=== PATIENT | male | born 1940 | race Caucasian/White ===

== ENCOUNTER 2018-09-07 10:25 | Inpatient (IN) | payer OTHER ==
[2018-09-07] MEDS ORDERED: ACYCLOVIR INJECTION 1,000 MG in DEXTROSE 5%-WATER - 100 ML IVPB ONE (11:11)
--- NOTE | 2018-09-07 11:17 | PDOC ---
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 Pt states that he first noticed a rash on his L shoulder last Monday when he went for his first chemo infusion. After his infusion, pt began to notice that the rash spread. He states that he noticed lesions appearing on his arms and back as well. Pt was seen by his oncologist and started on Zalacyclovir on Monday, 4 days ago. However, the rash continued to spread and started appearing on his face as well. Pt states that he went to his oncologist today and was sent immediately to the ER for evaluation. Pt denies F/C. Denies eye pain. Denies blurred vision. Denies CP/SOB. Denies BURKETT/ neck pain. Denies N/V/D. 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 No weakness. HEAD, EYES, EARS, NOSE AND THROAT: No change in vision. No ear pain or discharge. No sore throat. CARDIOVASCULAR: No chest pain, no shortness of breath, no loss of consciousness RESPIRATORY: No cough, wheezing, or hemoptysis. GASTROINTESTINAL: No nausea, vomiting, diarrhea or constipation. GENITOURINARY: No dysuria, frequency, or change in urination. MUSCULOSKELETAL: No joint or muscle swelling or pain. No neck or back pain. SKIN: + rash to face, arms, back NEUROLOGIC: No vertigo, no change in strength/sensation. ENDOCRINE: No increased thirst. No abnormal weight change. HEMATOLOGIC/LYMPHATIC: No anemia, easy bleeding, or history of blood clots. ALLERGIC/IMMUNOLOGIC: No hives or skin allergy. *Physical Exam - Vital Signs Last Vital Signs Temp Pulse Resp BP Pulse Ox 98.4 F 82 18 145/90 100 09/07/18 10:40 09/07/18 10:40 09/07/18 10:40 09/07/18 10:40 09/07/18 10:40 - Physical Exam Comments: 09/07/18 11:17 GENERAL: Awake, alert, and fully oriented, in no acute distress. HEAD: No signs of trauma EYES: PERRLA, EOMI, sclera anicteric, conjunctiva clear ENT: Auricles normal inspection, hearing grossly normal, nares patent, oropharynx clear without exudates. Moist mucosa NECK: Nontender, no stepoffs, Normal ROM, supple, no lymphadenopathy, JVD, or masses LUNGS: Breath sounds equal, clear to auscultation bilaterally. No wheezes, and no crackles HEART: Regular rate and rhythm, normal S1 and S2, no murmurs, rubs or gallops ABDOMEN: Soft, nontender, normoactive bowel sounds. No guarding, no rebound. No masses EXTREMITIES: Normal range of motion, no edema. No clubbing or cyanosis. No cords, erythema, or tenderness NEUROLOGICAL: Cranial nerves II through XII intact. 5/5 strength and sensation in all extremities, Normal speech, normal gait, normal cerebellar function SKIN: + crusted lesions to L upper back, with lesions crossing midline, + lesions to face and arms ED Treatment Course - LABORATORY CBC & Chemistry Diagram: 09/07/18 12:01 09/07/18 12:01 Medical Decision Making - Medical Decision Making 09/07/18 11:18 78 M with likely disseminated shingles. Pt with initial shingles rash appearing on L shoulder last Monday. However, upon initiation of chemotherapy that same day, rash subsequently progressed. Pt now with lesions to back, arms, and face. No evidence of herpes zoster ophthalmicus or silvano kay syndrome at this time. No meningitic signs. - Labs - IV acyclovir - Admit *DC/Admit/Observation/Transfer Diagnosis at time of Disposition: Disseminated zoster - Discharge Dispostion Condition at time of disposition: Good Decision to Admit order: Yes - Referrals Referrals: Foreign Mane MD [Primary Care Provider] - - Patient Instructions - Post Discharge Activity - Attestations Physician Attestion: 09/07/18 13:39 I, Dr. Emil Macario MD, attest that this document has been prepared under my direction and personally reviewed by me in its entirety. I further attest, that it accurately reflects all work, treatment, procedures and medical decision -making performed by me.
[2018-09-07] MEDS ORDERED: ACYCLOVIR INJECTION 650 MG in DEXTROSE 5%-WATER - 100 ML IVPB ONE (12:08)
[2018-09-07 12:27] LABS: BASO % 2.9 % (0-2.0); EOS % 3.3 % (0-4.5); HEMATOCRIT 40.6 % (35.4-49); HEMOGLOBIN 13.2 GM/dl (11.7-16.9); LYMPH % 15.8 % (8-40); MCH 28.5 pg (25.7-33.7); MCHC 32.4 g/dl (32.0-35.9); MEAN CELL VOLUME 87.9 fl (80-96); MEAN PLT VOLUME 7.4 fl (7.5-11.1); MONO % 7.6 % (3.8-10.2); NEUT % 70.4 % (42.8-82.8); PLATELET COUNT 326 K/MM3 (134-434); RBC 4.62 M/mm3 (4.00-5.60); RDW 12.9 % (11.9-15.9); WHITE BLOOD COUNT 4.1 K/mm3 (4.0-10.8)
[2018-09-07 12:40] LABS: ALBUMIN 3.3 g/dl (3.5-5.0); ALK PHOS 86 U/L (32-92); ANION GAP 6 MMOL/L (8-16); BILIRUBIN,TOTAL 0.6 mg/dl (0.2-1.0); BLOOD UREA NITROGEN 18 mg/dl (7-18); CALCIUM 8.3 mg/dl (8.4-10.2); CHLORIDE 103 mmol/L (98-107); CO2 24 mmol/L (22-28); CREATININE 0.8 mg/dl (0.6-1.3); GLUCOSE,RANDOM 105 mg/dl (74-106); POTASSIUM 4.3 mmol/L (3.5-5.1); SGOT/AST 18 U/L (10-42); SGPT/ALT 21 U/L (10-40); SODIUM 133 mmol/L (136-145); TOT PROT 6.4 g/dl (6.4-8.3)
--- NOTE | 2018-09-07 13:53 | HP ---
CHIEF COMPLAINT: Disseminated herpes zoster PCP: Dr. Mane HISTORY OF PRESENT ILLNESS: 78 year-old male with a PMH significant for depression presents to the ED with disseminated herpes zoster. Although patient has had signs and symptoms of an oropharyngeal tumor for five months, he apparently delayed seeking medical care. 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 One week ago, when the patient presented for his first chemotherapy session at [facility] [place], he pointed out a lesion on his right shoulder. Patient was started on PO valacyclovir. Patient presents today with a disseminated rash across face, neck, shoulders, chest, arms, hands, back, legs. Patient denies any type of pain or discomfort associated with the rash. Recent Travel: No PAST MEDICAL HISTORY: Depression PAST SURGICAL HISTORY: Tonsillectomy as child Social History: retired clinical older adult social work specialist Smoking: never Alcohol:no Drugs: no Family History: Allergies No Known Allergies Allergy (Verified 09/07/18 10:51) HOME MEDICATIONS: Home Medications Medication Instructions Recorded Fluoxetine HCl [Prozac -] 5 mg PO DAILY 09/07/18 Ondansetron [Zofran -] 8 mg PO TID PRN 09/07/18 Valacyclovir HCl [Valtrex] 1,000 mg PO DAILY 09/07/18 REVIEW OF SYSTEMS CONSTITUTIONAL: Absent: fever, chills, diaphoresis, generalized weakness, malaise, loss of appetite, weight change HEENT: Absent: rhinorrhea, nasal congestion, throat pain, throat swelling, difficulty swallowing, mouth swelling, ear pain, eye pain, visual changes CARDIOVASCULAR: Absent: chest pain, syncope, palpitations, irregular heart rate, lightheadedness , peripheral edema RESPIRATORY: Absent: cough, shortness of breath, dyspnea with exertion, orthopnea, wheezing, stridor, hemoptysis GASTROINTESTINAL: Absent: abdominal pain, abdominal distension, nausea, vomiting, diarrhea, constipation, melena, hematochezia GENITOURINARY: Absent: dysuria, frequency, urgency, hesitancy, hematuria, flank pain, genital pain MUSCULOSKELETAL: Absent: myalgia, arthralgia, joint swelling, back pain, neck pain SKIN: Absent: rash, itching, pallor HEMATOLOGIC/IMMUNOLOGIC: Absent: easy bleeding, easy bruising, lymphadenopathy, frequent infections ENDOCRINE: Absent: unexplained weight gain, unexplained weight loss, heat intolerance, cold intolerance NEUROLOGIC: Absent: headache, focal weakness or paresthesias, dizziness, unsteady gait, seizure, mental status changes, bladder or bowel incontinence PSYCHIATRIC: Absent: anxiety, depression, suicidal or homicidal ideation, hallucinations. PHYSICAL EXAMINATION Vital Signs - 24 hr 09/07/18 10:40 Temperature 98.4 F Pulse Rate 82 Respiratory 18 Rate Blood Pressure 145/90 O2 Sat by Pulse 100 Oximetry (%) GENERAL: Awake, alert, and fully oriented, in no acute distress. EYES: PERRL, EOMI, sclera clear, conjunctiva clear, no lesions observed in eyes LUNGS: Breath sounds equal, clear to auscultation bilaterally. No wheezes, and no crackles. No accessory muscle use. HEART: Regular rate and rhythm, normal S1 and S2 ABDOMEN: Soft, nontender, not distended MUSCULOSKELETAL: Normal range of motion at all joints. No bony deformities or tenderness. No CVA tenderness. UPPER EXTREMITIES: 2+ pulses, warm, well-perfused. No cyanosis. No clubbing. No peripheral edema. LOWER EXTREMITIES: 2+ pulses, warm, well-perfused. No calf tenderness. No peripheral edema. NEUROLOGICAL: Cranial nerves II-XII intact. Normal speech. Normal gait. PSYCHIATRIC: Cooperative. Good eye contact. Appropriate mood and affect. SKIN: Vesicular rash, mostly crusted over, face, neck, shoulders, chest, arms, hands, back, legs; lesion on pinna of left ear Laboratory Results - last 24 hr 09/07/18 09/07/18 12:01 12:01 WBC 4.1 RBC 4.62 Hgb 13.2 Hct 40.6 MCV 87.9 MCH 28.5 MCHC 32.4 RDW 12.9 Plt Count 326 MPV 7.4 L Absolute Neuts (auto) 3.0 Neutrophils % 70.4 Lymphocytes % 15.8 Monocytes % 7.6 Eosinophils % 3.3 Basophils % 2.9 H Sodium 133 L Potassium 4.3 Chloride 103 Carbon Dioxide 24 Anion Gap 6 L BUN 18 Creatinine 0.8 Creat Clearance w eGFR > 60 Random Glucose 105 Calcium 8.3 L Total Bilirubin 0.6 AST 18 ALT 21 Alkaline Phosphatase 86 Total Protein 6.4 Albumin 3.3 L ASSESSMENT/PLAN: 78 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 Admitted for disseminated herpes zoster. Disseminated herpes zoster --first lesion seen 7 days ago --started on PO valacylclovir --started on acyclovir IV in ED, will continue q8h --continuous IV fluids --Vanc 1g x 1 dose --start Zosyn --discussed with Dr. 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 Arevalo [phone] Depression --continue Prozac FEN Fluids: NS @ 125mL/hr Electrolytes: replete as indicated Nutrition: regular diet DVT prophylaxis: subq heparin Dispo: continues to require inpatient care. Full code. Visit type - Emergency Visit Emergency Visit: Yes ED Registration Date: 09/07/18 Care time: The patient presented to the Emergency Department on the above date and was hospitalized for further evaluation of their emergent condition. - New Patient This patient is new to me today: Yes Date on this admission: 09/08/18 - Critical Care Critical Care patient: No
[2018-09-07] MEDS ORDERED: SODIUM CHLORIDE 1,000 ML IV SCH (14:00)
[2018-09-07 15:55] VITALS: BMI 23.5
[2018-09-07] MEDS ORDERED: ACETAMINOPHEN 325 MG TABLET (FP) PO PRN (16:39)
[2018-09-07] MEDS ORDERED: ONDANSETRON 4 MG/2 ML VIAL IVPUSH PRN (17:00)
[2018-09-07] MEDS ORDERED: VANCOMYCIN 1 GRAM (PRE-DOCKED) 1,000 MG/250 ML BAG IVPB ONE (17:15)
[2018-09-07] MEDS: SODIUM CHLORIDE 1,000 ML IV SCH (17:27)
[2018-09-07] MEDS: PIPERACILLIN/TAZOB 3.375 GM 3.375 GM/50 ML BAG IVPB SCH (21:23)
[2018-09-07] MEDS: ACYCLOVIR INJECTION 620 MG in DEXTROSE 5%-WATER - 100 ML IVPB SCH (21:24)
[2018-09-07] MEDS: HEPARIN NA (PORCINE) 5,000 UNITS/ML 1ML VIAL SQ SCH (23:14)
[2018-09-08] MEDS: PIPERACILLIN/TAZOB 3.375 GM 3.375 GM/50 ML BAG IVPB SCH ×3 (02:00→18:19)
[2018-09-08] MEDS: ACYCLOVIR INJECTION 620 MG in DEXTROSE 5%-WATER - 100 ML IVPB SCH ×3 (03:09→18:19)
[2018-09-08] MEDS: HEPARIN NA (PORCINE) 5,000 UNITS/ML 1ML VIAL SQ SCH ×3 (06:44→21:27)
[2018-09-08] MEDS ORDERED: PT OWN MED DRAWER 7, Y5N ONE ×2 (09:33→16:12)
--- NOTE | 2018-09-08 09:53 | CON.ID ---
Consult Consult Specialty:: infectious diseases Reason for Consultation:: disseminated herpes and lesions on the finger and wrist - History of Present Illness Chief Complaint: rash and lesion on the thumb and wrist History of Present Illness: 78 year-old male with a PMH significant for depression admitted with disseminated herpes zoster. 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 One week ago, when the patient presented for his [place] [facility] he pointed out a lesion on his right shoulder. Patient was started on PO valacyclovir. Patient presents today with a disseminated rash across face, neck, shoulders, chest, arms, hands, back, legs. Patient denies any type of pain or discomfort associated with the rash. currently patient is confused but answering lot of questions but not remembering the dates - History Source History Provided By: Patient, Medical Record Limitations to Obtaining History: Clinical Condition - Alcohol/Substance Use Hx Alcohol Use: No - Smoking History Smoking history: Never smoked Have you smoked in the past 12 months: No Aproximately how many cigarettes per day: 0 Home Medications - Allergies Allergies/Adverse Reactions: Allergies Allergy/AdvReac Type Severity Reaction Status Date / Time No Known Allergies Allergy Verified 09/07/18 10:51 - Home Medications Home Medications: Ambulatory Orders RX: Fluoxetine HCl [Prozac -] 5 mg PO DAILY 09/07/18 RX: Clindamycin [Cleocin -] 300 mg PO TID #15 capsule 09/11/18 RX: Valacyclovir HCl [Valtrex] 1,000 mg PO BID #10 tablet 09/11/18 Review of Systems - Review of Systems Constitutional: reports: No Symptoms Eyes: reports: No Symptoms HENT: reports: No Symptoms Neck: reports: No Symptoms Cardiovascular: reports: No Symptoms Respiratory: reports: No Symptoms Gastrointestinal: reports: No Symptoms Genitourinary: reports: No Symptoms Musculoskeletal: reports: No Symptoms Integumentary: reports: Rash, Other (lesions on the thumb and wrist) Neurological: reports: Confusion Endocrine: reports: No Symptoms Hematology/Lymphatic: reports: No Symptoms Psychiatric: reports: No Symptoms Physical Exam Vital Signs: Vital Signs Temperature 98.6 F 09/08/18 06:00 Pulse Rate 81 09/08/18 06:00 Respiratory Rate 18 09/08/18 06:00 Blood Pressure 129/79 09/08/18 06:00 O2 Sat by Pulse Oximetry (%) 95 09/08/18 06:00 Constitutional: Yes: Well Nourished, No Distress, Calm Eyes: Yes: Conjunctiva Clear HENT: Yes: Atraumatic, Other (rash noted on left ear and other parts of the face ) Neck: Yes: Supple, Trachea Midline Cardiovascular: Yes: Regular Rate and Rhythm Respiratory: Yes: Regular, CTA Bilaterally Gastrointestinal: Yes: Normal Bowel Sounds, Soft Musculoskeletal: Yes: WNL Extremities: Yes: WNL Wound/Incision: Yes: Clean/Dry, Other (on the thumb and the wrist) Neurological: Yes: Alert, Confusion Psychiatric: Yes: Alert Labs: CBC, BMP 09/07/18 12:01 09/07/18 12:01 Imaging - Results Chest X-ray: Report Reviewed, Image Reviewed Assessment/Plan 78 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 Admitted for disseminated herpes zoster. 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
[2018-09-08] MEDS: FLUoxetine HCL 10 MG CAPSULE (FP) PO SCH (09:57)
[2018-09-08] MEDS ORDERED: FLUoxetine HCL 10 MG TABLET PO SCH (10:00)
[2018-09-08 14:26] LABS: BASO % 2.9 % (0-2.0); EOS % 5.8 % (0-4.5); HEMATOCRIT 37.3 % (35.4-49); HEMOGLOBIN 12.6 GM/dl (11.7-16.9); LYMPH % 20.2 % (8-40); MCH 29.6 pg (25.7-33.7); MCHC 33.7 g/dl (32.0-35.9); MEAN PLT VOLUME 7.4 fl (7.5-11.1); MONO % 12.3 % (3.8-10.2); NEUT % 58.8 % (42.8-82.8); PLATELET COUNT 334 K/MM3 (134-434); RBC 4.23 M/mm3 (4.00-5.60); RDW 13.4 % (11.9-15.9); WHITE BLOOD COUNT 3.4 K/mm3 (4.0-10.8)
[2018-09-08 14:37] LABS: ALK PHOS 75 U/L (32-92); ANION GAP 5 MMOL/L (8-16); BILIRUBIN,TOTAL 0.7 mg/dl (0.2-1.0); BLOOD UREA NITROGEN 14 mg/dl (7-18); CALCIUM 7.9 mg/dl (8.4-10.2); CHLORIDE 105 mmol/L (98-107); CO2 26 mmol/L (22-28); CREATININE 0.9 mg/dl (0.6-1.3); GLUCOSE,RANDOM 114 mg/dl (74-106); MAGNESIUM 1.7 mg/dL (1.8-2.4); PHOSPHOROUS 1.6 mg/dl (2.5-4.6); SGOT/AST 20 U/L (10-42); SGPT/ALT 21 U/L (10-40); SODIUM 136 mmol/L (136-145); TOT PROT 5.9 g/dl (6.4-8.3)
[2018-09-08 14:41] LABS: INR 1.06 (0.82-1.09); PROTHROMBIN TIME (PATIENT) 11.9 SEC (10.2-13.0)
--- NOTE | 2018-09-08 15:41 | PN ---
Physical Exam: SUBJECTIVE: Patient seen and examined OBJECTIVE: Vital Signs Period Temp Pulse Resp BP Sys/Red Pulse Ox Last 24 Hr 98.1 F-99.0 F 78-96 16-20 122-140/77-79 92-96 GENERAL: Awake, alert, and fully oriented, in no acute distress. EYES: PERRL, EOMI, sclera clear, conjunctiva clear, no lesions observed in eyes LUNGS: Breath sounds equal, clear to auscultation bilaterally. No wheezes, and no crackles. No accessory muscle use. HEART: Regular rate and rhythm, normal S1 and S2 ABDOMEN: Soft, nontender, not distended UPPER EXTREMITIES: 2+ pulses, warm, well-perfused. No cyanosis. No clubbing. No peripheral edema. LOWER EXTREMITIES: 2+ pulses, warm, well-perfused. No calf tenderness. No peripheral edema. NEUROLOGICAL: Cranial nerves II-XII intact. Normal speech. Normal gait. PSYCHIATRIC: Cooperative. Good eye contact. Appropriate mood and affect. SKIN: Vesicular rash, mostly crusted over, face, neck, shoulders, chest, arms, hands, back, legs; lesion on pinna of left ear Laboratory Results - last 24 hr 09/08/18 09/08/18 09/08/18 13:30 13:30 13:30 WBC 3.4 L RBC 4.23 Hgb 12.6 Hct 37.3 MCV 88.0 MCH 29.6 MCHC 33.7 RDW 13.4 Plt Count 334 MPV 7.4 L Absolute Neuts (auto) 2.0 Neutrophils % 58.8 Lymphocytes % 20.2 D Monocytes % 12.3 H Eosinophils % 5.8 H Basophils % 2.9 H PT with INR 11.9 INR 1.06 PTT (Actin FS) 31.0 Sodium 136 Potassium 4.0 Chloride 105 Carbon Dioxide 26 Anion Gap 5 L BUN 14 Creatinine 0.9 Creat Clearance w eGFR > 60 Random Glucose 114 H Calcium 7.9 L Phosphorus 1.6 L Magnesium 1.7 L Total Bilirubin 0.7 AST 20 ALT 21 Alkaline Phosphatase 75 D Total Protein 5.9 L Albumin 3.0 L Active Medications Generic Name Dose Route Start Last Admin Trade Name Freq PRN Reason Stop Dose Admin Acetaminophen 650 mg 09/07/18 16:39 Tylenol - PO Q6H PRN FEVER Fluoxetine HCl 10 mg 09/08/18 10:00 09/08/18 09:57 Prozac - PO 10 mg DAILY JEFF Administration Heparin Sodium (Porcine) 5,000 unit 09/07/18 22:00 09/08/18 14:30 Heparin - SQ 5,000 unit TID JEFF Administration Acyclovir 620 mg/ Dextrose 112.4 mls @ 100 mls/hr 09/07/18 21:00 09/08/18 09: 58 IVPB 100 mls/hr Q8H-IV JEFF Administration Sodium Chloride 1,000 mls @ 125 mls/hr 09/07/18 17:00 09/07/18 17:27 Normal Saline - IV 125 mls/hr ASDIR JEFF Administration Piperacillin Sod/Tazobactam Sod 3.375 gm in 50 mls @ 100 mls/hr 09/07/18 18: 00 09/08/18 09:57 Zosyn 3.375gm Ivpb (Pre-Docked) IVPB 100 mls/hr Q8H-IV JEFF Administration Protocol Ondansetron HCl 4 mg 09/07/18 17:00 Zofran Injection IVPUSH Q6H PRN NAUSEA ASSESSMENT/PLAN: 78 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 Admitted for disseminated herpes zoster. 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 Arevalo [phone] Depression --continue Prozac Hypophosphatemia --repleted Hypomagnesemia --repleted FEN Fluids: NS @ 125mL/hr Electrolytes: replete as indicated Nutrition: regular diet DVT prophylaxis: subq heparin Dispo: continues to require inpatient care. Full code. Visit type - Emergency Visit Emergency Visit: Yes ED Registration Date: 09/07/18 Care time: The patient presented to the Emergency Department on the above date and was hospitalized for further evaluation of their emergent condition. - New Patient This patient is new to me today: No - Critical Care Critical Care patient: No
[2018-09-08] MEDS: SODIUM CHLORIDE 1,000 ML IV SCH (17:32)
[2018-09-08] MEDS ORDERED: MAGNESIUM SULF 50% (8.12 MEQ/2 ML-1 GM VIAL) IVPB ONE ×2 (18:10→19:30)
[2018-09-08] MEDS: NAPH,MB-DB/K PH,MBDB POWDER PACKET PO SCH (21:27)
[2018-09-08 21:39] LABS: PH,URINE 7.5 (4.5-8); URINE APPEARANCE Clear; URINE BILIRUBIN Negative (NEGATIVE); URINE COLOR Yellow; URINE GLUCOSE (UA) Negative (NEGATIVE); URINE KETONE Negative (NEGATIVE); URINE LEUK ESTERASE Negative (NEGATIVE); URINE NITRITE Negative (NEGATIVE); URINE PROTEIN Negative (NEGATIVE); URINE UROBILINOGEN 0.2 (0.2-1.0)
[2018-09-09] MEDS: PIPERACILLIN/TAZOB 3.375 GM 3.375 GM/50 ML BAG IVPB SCH ×2 (01:57→12:08)
[2018-09-09] MEDS: ACYCLOVIR INJECTION 620 MG in DEXTROSE 5%-WATER - 100 ML IVPB SCH ×3 (02:00→17:08)
[2018-09-09] MEDS: NAPH,MB-DB/K PH,MBDB POWDER PACKET PO SCH ×3 (05:49→21:42)
[2018-09-09] MEDS: HEPARIN NA (PORCINE) 5,000 UNITS/ML 1ML VIAL SQ SCH ×3 (05:49→21:42)
[2018-09-09 09:29] LABS: BASO % 1.7 % (0-2.0); HEMATOCRIT 35.1 % (35.4-49); HEMOGLOBIN 11.8 GM/dl (11.7-16.9); LYMPH % 28.8 % (8-40); MCH 29.9 pg (25.7-33.7); MCHC 33.6 g/dl (32.0-35.9); MEAN CELL VOLUME 88.8 fl (80-96); MEAN PLT VOLUME 7.2 fl (7.5-11.1); NEUT % 42.5 % (42.8-82.8); PLATELET COUNT 329 K/MM3 (134-434); RBC 3.95 M/mm3 (4.00-5.60); RDW 12.9 % (11.9-15.9); WHITE BLOOD COUNT 3.5 K/mm3 (4.0-10.8)
[2018-09-09 09:41] LABS: ALBUMIN 2.8 g/dl (3.5-5.0); ALK PHOS 70 U/L (32-92); ANION GAP 8 MMOL/L (8-16); BILIRUBIN,TOTAL 0.5 mg/dl (0.2-1.0); BLOOD UREA NITROGEN 8 mg/dl (7-18); CALCIUM 7.7 mg/dl (8.4-10.2); CHLORIDE 103 mmol/L (98-107); CO2 23 mmol/L (22-28); CREATININE 0.8 mg/dl (0.6-1.3); GLUCOSE,RANDOM 101 mg/dl (74-106); MAGNESIUM 1.9 mg/dL (1.8-2.4); PHOSPHOROUS 2.4 mg/dl (2.5-4.6); SGOT/AST 16 U/L (10-42); SGPT/ALT 17 U/L (10-40); SODIUM 134 mmol/L (136-145); TOT PROT 5.6 g/dl (6.4-8.3)
--- NOTE | 2018-09-09 10:15 | PN ---
Physical Exam: SUBJECTIVE: Patient seen at bedside, no complaints. OBJECTIVE: Vital Signs Period Temp Pulse Resp BP Sys/Red Pulse Ox Last 24 Hr 98.4 F-99.0 F 78-94 16-20 135-146/77-85 92-97 GENERAL: The patient is awake, alert, and fully oriented, in no acute distress. HEAD: Normal with no signs of trauma. EYES: PERRL, extraocular movements intact, sclera anicteric, conjunctiva clear. No ptosis. ENT: Ears normal, nares patent, oropharynx clear without exudates, moist mucous membranes. NECK: Trachea midline, full range of motion, supple. LUNGS: Breath sounds equal, clear to auscultation bilaterally, no wheezes, no crackles, no accessory muscle use. HEART: Regular rate and rhythm, S1, S2 without murmur, rub or gallop. ABDOMEN: Soft, nontender, nondistended, normoactive bowel sounds, no guarding, no rebound, no hepatosplenomegaly, no masses. EXTREMITIES: 2+ pulses, warm, well-perfused, no edema. NEUROLOGICAL: Cranial nerves II through XII grossly intact. Normal speech, gait not observed. PSYCH: Normal mood, normal affect. SKIN: Vesicular rash, mostly crusted over, face, neck, shoulders, chest, arms, hands, back, legs; lesion on pinna of left ear Laboratory Results - last 24 hr 09/08/18 09/08/18 09/08/18 13:30 13:30 13:30 WBC 3.4 L RBC 4.23 Hgb 12.6 Hct 37.3 MCV 88.0 MCH 29.6 MCHC 33.7 RDW 13.4 Plt Count 334 MPV 7.4 L Absolute Neuts (auto) 2.0 Neutrophils % 58.8 Lymphocytes % 20.2 D Monocytes % 12.3 H Eosinophils % 5.8 H Basophils % 2.9 H PT with INR 11.9 INR 1.06 PTT (Actin FS) 31.0 Sodium 136 Potassium 4.0 Chloride 105 Carbon Dioxide 26 Anion Gap 5 L BUN 14 Creatinine 0.9 Creat Clearance w eGFR > 60 Random Glucose 114 H Calcium 7.9 L Phosphorus 1.6 L Magnesium 1.7 L Total Bilirubin 0.7 AST 20 ALT 21 Alkaline Phosphatase 75 D Total Protein 5.9 L Albumin 3.0 L Urine Color Urine Appearance Urine pH Ur Specific [place] Urine Protein Urine Glucose (UA) Urine Ketones Urine Blood Urine Nitrite Urine Bilirubin Urine Urobilinogen Ur Leukocyte Esterase 09/08/18 09/09/18 09/09/18 21:00 06:20 06:20 WBC 3.5 L RBC 3.95 L Hgb 11.8 Hct 35.1 L MCV 88.8 MCH 29.9 MCHC 33.6 RDW 12.9 Plt Count 329 MPV 7.2 L Absolute Neuts (auto) 1.5 Neutrophils % 42.5 L D Lymphocytes % 28.8 D Monocytes % 18.0 H Eosinophils % 9.0 H Basophils % 1.7 PT with INR INR PTT (Actin FS) Sodium 134 L Potassium 4.0 Chloride 103 Carbon Dioxide 23 Anion Gap 8 BUN 8 Creatinine 0.8 Creat Clearance w eGFR > 60 Random Glucose 101 Calcium 7.7 L Phosphorus 2.4 L D Magnesium 1.9 Total Bilirubin 0.5 AST 16 ALT 17 Alkaline Phosphatase 70 Total Protein 5.6 L Albumin 2.8 L Urine Color Yellow Urine Appearance Clear Urine pH 7.5 Ur Specific [place] 1.020 Urine Protein Negative Urine Glucose (UA) Negative Urine Ketones Negative Urine Blood Negative Urine Nitrite Negative Urine Bilirubin Negative Urine Urobilinogen 0.2 Ur Leukocyte Esterase Negative Active Medications Generic Name Dose Route Start Last Admin Trade Name Freq PRN Reason Stop Dose Admin Acetaminophen 650 mg 09/07/18 16:39 Tylenol - PO Q6H PRN FEVER Fluoxetine HCl 10 mg 09/08/18 10:00 09/08/18 09:57 Prozac - PO 10 mg DAILY JEFF Administration Heparin Sodium (Porcine) 5,000 unit 09/07/18 22:00 09/09/18 05:49 Heparin - SQ 5,000 unit TID JEFF Administration Acyclovir 620 mg/ Dextrose 112.4 mls @ 100 mls/hr 09/07/18 21:00 09/09/18 02: 00 IVPB 100 mls/hr Q8H-IV JEFF Administration Sodium Chloride 1,000 mls @ 125 mls/hr 09/07/18 17:00 09/08/18 17:32 Normal Saline - IV 125 mls/hr ASDIR JEFF Administration Piperacillin Sod/Tazobactam Sod 3.375 gm in 50 mls @ 100 mls/hr 09/07/18 18: 00 09/09/18 01:57 Zosyn 3.375gm Ivpb (Pre-Docked) IVPB 100 mls/hr Q8H-IV JEFF Administration Protocol Ondansetron HCl 4 mg 09/07/18 17:00 Zofran Injection IVPUSH Q6H PRN NAUSEA Potassium Phos/Sodium Phos 2 packet 09/08/18 22:00 09/09/18 05:49 Phos-Nak Packet - PO 09/09/18 22:01 2 packet TID JEFF Administration ASSESSMENT/PLAN: 78 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 Admitted for disseminated herpes zoster. 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 Arevalo [phone] Depression --continue Prozac Hypophosphatemia --repleted Hypomagnesemia-resolved --repleted FEN Fluids: NS @ 125mL/hr Electrolytes: replete as indicated Nutrition: regular diet DVT prophylaxis: subq heparin Dispo: continues to require inpatient care. Full code. Visit type - Emergency Visit Emergency Visit: Yes ED Registration Date: 09/07/18 Care time: The patient presented to the Emergency Department on the above date and was hospitalized for further evaluation of their emergent condition. - New Patient This patient is new to me today: Yes Date on this admission: 09/09/18 - Critical Care Critical Care patient: No
[2018-09-09] MEDS ORDERED: DEXTROSE 5%-WATER - 50 ML IVPB ONE ×2 (10:37→17:00)
[2018-09-09] MEDS ORDERED: PIPERACILLIN/TAZOBACTAM 3.375 GM VIAL IVPB ONE ×2 (10:38→17:00)
[2018-09-09] MEDS: FLUoxetine HCL 10 MG CAPSULE (FP) PO SCH (10:42)
[2018-09-09] MEDS: PIPERACILLIN/TAZOB 3.375 GM 3.375 GM in DEXTROSE 5%-WATER - 50 ML IVPB SCH ×2 (10:42→17:08)
--- NOTE | 2018-09-09 12:07 | PN ---
Progress Note, Physician History of Present Illness: patient stable no new issue improving - Current Medication List Current Medications: Active Medications Acetaminophen (Tylenol -) 650 mg PO Q6H PRN PRN Reason: FEVER Fluoxetine HCl (Prozac -) 10 mg PO DAILY [facility] Last Admin: 09/09/18 10:42 Dose: 10 mg Heparin Sodium (Porcine) (Heparin -) 5,000 unit SQ TID [facility] Last Admin: 09/09/18 05:49 Dose: 5,000 unit Acyclovir 620 mg/ Dextrose 112.4 mls @ 100 mls/hr IVPB Q8H-IV JEFF Last Admin: 09/09/18 10:00 Dose: 100 mls/hr Sodium Chloride (Normal Saline -) 1,000 mls @ 125 mls/hr IV ASDIR JEFF Last Admin: 09/08/18 17:32 Dose: 125 mls/hr Piperacillin Sod/Tazobactam (Sod 3.375 gm/ Dextrose) 50 mls @ 100 mls/hr IVPB Q8H-IV JEFF; Protocol Last Admin: 09/09/18 10:42 Dose: 100 mls/hr Ondansetron HCl (Zofran Injection) 4 mg IVPUSH Q6H PRN PRN Reason: NAUSEA Potassium Phos/Sodium Phos (Phos-Nak Packet -) 2 packet PO TID [facility] Stop: 09/09/18 22:01 Last Admin: 09/09/18 05:49 Dose: 2 packet - Objective Vital Signs: Vital Signs Temperature 98.2 F 09/09/18 10:00 Pulse Rate 82 09/09/18 10:00 Respiratory Rate 20 09/09/18 10:00 Blood Pressure 126/78 09/09/18 10:00 O2 Sat by Pulse Oximetry (%) 96 09/08/18 22:00 Constitutional: Yes: No Distress, Calm Cardiovascular: Yes: Regular Rate and Rhythm Respiratory: Yes: Regular, CTA Bilaterally Gastrointestinal: Yes: Normal Bowel Sounds, Soft Musculoskeletal: Yes: WNL Extremities: Yes: WNL Integumentary: Yes: Other (disseminated rash patient has wound on the wrist and the thumb) Wound/Incision: Yes: Clean/Dry, Open to air Neurological: Yes: Alert, Oriented Labs: CBC, BMP 09/09/18 06:20 09/09/18 06:20 INR, PTT INR 1.06 (0.82-1.09) 09/08/18 13:30 Assessment/Plan 78 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 Admitted for disseminated herpes zoster. 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
[2018-09-09] MEDS ORDERED: SODIUM CHLORIDE NASAL SPRAY 44 ML BOTTLE NS PRN (15:53)
[2018-09-09] MEDS: PANTOPRAZOLE 40 MG TABLET (FP) PO SCH (16:40)
[2018-09-09] MEDS: SODIUM CHLORIDE 1,000 ML IV SCH (17:08)
[2018-09-10] MEDS ORDERED: DEXTROSE 5%-WATER - 50 ML IVPB ONE ×2 (00:11→09:00)
[2018-09-10] MEDS ORDERED: PIPERACILLIN/TAZOBACTAM 3.375 GM VIAL IVPB ONE ×2 (00:11→09:00)
[2018-09-10] MEDS: PIPERACILLIN/TAZOB 3.375 GM 3.375 GM in DEXTROSE 5%-WATER - 50 ML IVPB SCH ×2 (01:57→10:41)
[2018-09-10] MEDS: ACYCLOVIR INJECTION 620 MG in DEXTROSE 5%-WATER - 100 ML IVPB SCH ×2 (03:15→10:41)
[2018-09-10] MEDS: HEPARIN NA (PORCINE) 5,000 UNITS/ML 1ML VIAL SQ SCH ×3 (05:32→21:25)
[2018-09-10 08:56] LABS: WHITE BLOOD COUNT 3.8 K/mm3 (4.0-10.8)
[2018-09-10] MEDS ORDERED: PT OWN MED DRAWER 7, Y5N ONE ×2 (08:59→16:49)
[2018-09-10 09:02] LABS: ALBUMIN 2.9 g/dl (3.5-5.0); ALK PHOS 70 U/L (32-92); ANION GAP 9 MMOL/L (8-16); BILIRUBIN,TOTAL 0.4 mg/dl (0.2-1.0); BLOOD UREA NITROGEN 6 mg/dl (7-18); CALCIUM 7.8 mg/dl (8.4-10.2); CHLORIDE 101 mmol/L (98-107); CO2 26 mmol/L (22-28); CREATININE 0.8 mg/dl (0.6-1.3); GLUCOSE,RANDOM 93 mg/dl (74-106); MAGNESIUM 1.8 mg/dL (1.8-2.4); POTASSIUM 4.3 mmol/L (3.5-5.1); SGOT/AST 15 U/L (10-42); SGPT/ALT 17 U/L (10-40); SODIUM 136 mmol/L (136-145); TOT PROT 5.8 g/dl (6.4-8.3)
[2018-09-10 09:55] LABS: BASO % 1.6 % (0-2.0); EOS % 9.7 % (0-4.5); HEMATOCRIT 36.5 % (35.4-49); HEMOGLOBIN 12.1 GM/dl (11.7-16.9); LYMPH % 30.6 % (8-40); MCH 29.6 pg (25.7-33.7); MCHC 33.3 g/dl (32.0-35.9); MEAN CELL VOLUME 88.9 fl (80-96); MEAN PLT VOLUME 7.1 fl (7.5-11.1); NEUT % 32.1 % (42.8-82.8); PLATELET COUNT 397 K/MM3 (134-434)
--- NOTE | 2018-09-10 10:05 | PN ---
Physical Exam: SUBJECTIVE: Patient seen and examined at bedside. Daughter present. Patient denies pain or discomfort. Denies any type of eye pain, change in vision. No ocular involvement. OBJECTIVE: Vital Signs Period Temp Pulse Resp BP Sys/Red Pulse Ox Last 24 Hr 97.9 F-99.3 F 63-87 18-22 119-149/68-85 96-96 GENERAL: The patient is awake, alert, and fully oriented, in no acute distress. EYES: PERRL, EOMI, sclera clear, conjunctiva clear, no lesions observed in eyes LUNGS: Breath sounds equal, clear to auscultation bilaterally. No wheezes, and no crackles. No accessory muscle use. HEART: Regular rate and rhythm, normal S1 and S2 ABDOMEN: Soft, nontender, not distended UPPER EXTREMITIES: 2+ pulses, warm, well-perfused. No cyanosis. No clubbing. No peripheral edema. LOWER EXTREMITIES: 2+ pulses, warm, well-perfused. No calf tenderness. No peripheral edema. NEUROLOGICAL: Cranial nerves II-XII intact. Normal speech. Normal gait. PSYCHIATRIC: Cooperative. Good eye contact. Appropriate mood and affect. SKIN: Vesicular rash, mostly crusted over, face, neck, shoulders, chest, arms, hands, back, legs; lesion on pinna of left ear; no progression of lesions Laboratory Results - last 24 hr 09/10/18 09/10/18 08:24 08:24 WBC 3.8 L RBC 4.10 Hgb 12.1 Hct 36.5 MCV 88.9 MCH 29.6 MCHC 33.3 RDW 13.0 Plt Count 397 D MPV 7.1 L Absolute Neuts (auto) 1.2 Neutrophils % 32.1 L D Lymphocytes % 30.6 Monocytes % 26.0 H Eosinophils % 9.7 H Basophils % 1.6 Sodium 136 Potassium 4.3 Chloride 101 Carbon Dioxide 26 Anion Gap 9 BUN 6 L Creatinine 0.8 Creat Clearance w eGFR > 60 Random Glucose 93 Calcium 7.8 L Magnesium 1.8 Total Bilirubin 0.4 AST 15 ALT 17 Alkaline Phosphatase 70 Total Protein 5.8 L Albumin 2.9 L Active Medications Generic Name Dose Route Start Last Admin Trade Name Freq PRN Reason Stop Dose Admin Acetaminophen 650 mg 09/07/18 16:39 Tylenol - PO Q6H PRN FEVER Fluoxetine HCl 10 mg 09/08/18 10:00 09/09/18 10:42 Prozac - PO 10 mg DAILY JEFF Administration Heparin Sodium (Porcine) 5,000 unit 09/07/18 22:00 09/10/18 05:32 Heparin - SQ 5,000 unit TID JEFF Administration Acyclovir 620 mg/ Dextrose 112.4 mls @ 100 mls/hr 09/07/18 21:00 09/10/18 03: 15 IVPB 100 mls/hr Q8H-IV JEFF Administration Sodium Chloride 1,000 mls @ 125 mls/hr 09/07/18 17:00 09/09/18 17:08 Normal Saline - IV 125 mls/hr ASDIR JEFF Administration Piperacillin Sod/Tazobactam 50 mls @ 100 mls/hr 09/09/18 10:23 09/10/18 01:57 Sod 3.375 gm/ Dextrose IVPB 100 mls/hr Q8H-IV JEFF Administration Protocol Ondansetron HCl 4 mg 09/07/18 17:00 Zofran Injection IVPUSH Q6H PRN NAUSEA Pantoprazole Sodium 40 mg 09/09/18 16:00 09/09/18 16:40 Protonix - PO 40 mg DAILY JEFF Administration Sodium Chloride 2 spray 09/09/18 15:53 09/09/18 17:09 [place] Nasal [place] - NS 2 spray TID PRN Administration NASAL CONGESTION ASSESSMENT/PLAN 78 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 Admitted for disseminated herpes zoster. 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 Arevalo [phone] Depression --continue Prozac FEN Fluids: NS @ 125mL/hr Electrolytes: replete as indicated Nutrition: regular diet DVT prophylaxis: subq heparin Dispo: continues to require inpatient care. Lengthy discussion with daughter about patient's living situation, concern for safety and well-being. Discussed with case management. Have left two messages for Dr. Arevalo ([facility] [place] [phone]) and one message for Pearl Resendiz ([facility] [place] Full code. Visit type - Emergency Visit Emergency Visit: Yes ED Registration Date: 09/07/18 Care time: The patient presented to the Emergency Department on the above date and was hospitalized for further evaluation of their emergent condition. - New Patient This patient is new to me today: No - Critical Care Critical Care patient: No
[2018-09-10] MEDS: PANTOPRAZOLE 40 MG TABLET (FP) PO SCH (10:41)
[2018-09-10] MEDS: FLUoxetine HCL 10 MG CAPSULE (FP) PO SCH (10:41)
--- NOTE | 2018-09-10 13:43 | PN ---
Progress Note, Physician History of Present Illness: patient stable no new issue improving - Current Medication List Current Medications: Active Medications Acetaminophen (Tylenol -) 650 mg PO Q6H PRN PRN Reason: FEVER Fluoxetine HCl (Prozac -) 10 mg PO DAILY [facility] Last Admin: 09/10/18 10:41 Dose: 10 mg Heparin Sodium (Porcine) (Heparin -) 5,000 unit SQ TID [facility] Last Admin: 09/10/18 05:32 Dose: 5,000 unit Acyclovir 620 mg/ Dextrose 112.4 mls @ 100 mls/hr IVPB Q8H-IV JEFF Last Admin: 09/10/18 10:41 Dose: 100 mls/hr Sodium Chloride (Normal Saline -) 1,000 mls @ 125 mls/hr IV ASDIR JEFF Last Admin: 09/09/18 17:08 Dose: 125 mls/hr Piperacillin Sod/Tazobactam (Sod 3.375 gm/ Dextrose) 50 mls @ 100 mls/hr IVPB Q8H-IV JEFF; Protocol Last Admin: 09/10/18 10:41 Dose: 100 mls/hr Ondansetron HCl (Zofran Injection) 4 mg IVPUSH Q6H PRN PRN Reason: NAUSEA Pantoprazole Sodium (Protonix -) 40 mg PO DAILY [facility] Last Admin: 09/10/18 10:41 Dose: 40 mg Sodium Chloride ([place] Nasal [place] -) 2 spray NS TID PRN PRN Reason: NASAL CONGESTION Last Admin: 09/09/18 17:09 Dose: 2 spray - Objective Vital Signs: Vital Signs Temperature 98.2 F 09/10/18 10:00 Pulse Rate 70 09/10/18 10:00 Respiratory Rate 18 09/10/18 10:00 Blood Pressure 134/75 09/10/18 10:00 O2 Sat by Pulse Oximetry (%) 95 09/10/18 10:00 Constitutional: Yes: No Distress, Calm Cardiovascular: Yes: Regular Rate and Rhythm Respiratory: Yes: Regular, CTA Bilaterally Gastrointestinal: Yes: Normal Bowel Sounds, Soft Musculoskeletal: Yes: WNL Extremities: Yes: WNL Integumentary: Yes: Rash (improving) Neurological: Yes: Alert, Oriented Psychiatric: Yes: Alert Labs: CBC, BMP 09/10/18 08:24 09/10/18 08:24 INR, PTT INR 1.06 (0.82-1.09) 09/08/18 13:30 Assessment/Plan 78 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 Admitted for disseminated herpes zoster. 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
--- NOTE | 2018-09-10 15:59 | HOSP ---
Subjective - Review of Symptoms Events since last encounter: [facility] APS Monday through Monday, 9 a.m. through 4:30 p.m., [facility] Intake Line 09/10/18 4:00pm Called and left voice mail. Physical Examination Vital Signs: Vital Signs Temperature 98.4 F 09/10/18 14:00 Pulse Rate 82 09/10/18 14:00 Respiratory Rate 18 09/10/18 14:00 Blood Pressure 128/81 09/10/18 14:00 O2 Sat by Pulse Oximetry (%) 96 09/10/18 14:00 Labs: CBC, BMP 09/10/18 08:24 09/10/18 08:24
[2018-09-10] MEDS: SODIUM CHLORIDE 1,000 ML IV SCH (17:50)
[2018-09-10] MEDS: CLINDAMYCIN 300 MG PREMIX IVPB 300 MG/50 ML BAG IVPB SCH (17:51)
[2018-09-11] MEDS ORDERED: REFRIGERATED ANITBIOTICS ONE (01:00)
[2018-09-11] MEDS ORDERED: PT OWN MED DRAWER 7, Y5N ONE (01:01)
[2018-09-11] MEDS: CLINDAMYCIN 300 MG PREMIX IVPB 300 MG/50 ML BAG IVPB SCH ×2 (01:30→10:12)
[2018-09-11] MEDS: ACYCLOVIR INJECTION 620 MG in DEXTROSE 5%-WATER - 100 ML IVPB SCH ×2 (02:20→10:12)
[2018-09-11] MEDS: HEPARIN NA (PORCINE) 5,000 UNITS/ML 1ML VIAL SQ SCH (06:54)
--- NOTE | 2018-09-11 09:12 | PN ---
Progress Note, Physician History of Present Illness: stable no new issues rash improving - Current Medication List Current Medications: Active Medications Acetaminophen (Tylenol -) 650 mg PO Q6H PRN PRN Reason: FEVER Last Admin: 09/10/18 20:30 Dose: 650 mg Fluoxetine HCl (Prozac -) 10 mg PO DAILY [facility] Last Admin: 09/10/18 10:41 Dose: 10 mg Heparin Sodium (Porcine) (Heparin -) 5,000 unit SQ TID JEFF Last Admin: 09/11/18 06:54 Dose: 5,000 unit Acyclovir 620 mg/ Dextrose 112.4 mls @ 100 mls/hr IVPB Q8H-IV JEFF Last Admin: 09/11/18 02:20 Dose: 100 mls/hr Sodium Chloride (Normal Saline -) 1,000 mls @ 125 mls/hr IV ASDIR JEFF Last Admin: 09/10/18 17:50 Dose: 125 mls/hr Clindamycin Phosphate (Cleocin 300 Mg Premix Ivpb) 300 mg in 50 mls @ 100 mls/ hr IVPB Q8H-IV JEFF; Protocol Last Admin: 09/11/18 01:30 Dose: 100 mls/hr Ondansetron HCl (Zofran Injection) 4 mg IVPUSH Q6H PRN PRN Reason: NAUSEA Pantoprazole Sodium (Protonix -) 40 mg PO DAILY [facility] Last Admin: 09/10/18 10:41 Dose: 40 mg Sodium Chloride ([place] Nasal [place] -) 2 spray NS TID PRN PRN Reason: NASAL CONGESTION Last Admin: 09/09/18 17:09 Dose: 2 spray - Objective Vital Signs: Vital Signs Temperature 98.0 F 09/11/18 06:00 Pulse Rate 60 09/11/18 06:00 Respiratory Rate 18 09/11/18 06:00 Blood Pressure 150/88 09/11/18 06:00 O2 Sat by Pulse Oximetry (%) 100 09/11/18 06:00 Constitutional: Yes: No Distress, Calm Cardiovascular: Yes: Regular Rate and Rhythm Respiratory: Yes: Regular, CTA Bilaterally Gastrointestinal: Yes: Normal Bowel Sounds, Soft Musculoskeletal: Yes: WNL Extremities: Yes: WNL Neurological: Yes: Alert, Oriented Psychiatric: Yes: Alert, Oriented Labs: CBC, BMP 09/10/18 08:24 09/10/18 08:24 INR, PTT INR 1.06 (0.82-1.09) 09/08/18 13:30 Assessment/Plan 78 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 Admitted for disseminated herpes zoster. 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
[2018-09-11 10:09] VITALS: BP 148/88; PULSE 78; TEMP 98
[2018-09-11] MEDS: FLUoxetine HCL 10 MG CAPSULE (FP) PO SCH (10:12)
[2018-09-11] MEDS: PANTOPRAZOLE 40 MG TABLET (FP) PO SCH (10:13)
[2018-09-11] MEDS: SODIUM CHLORIDE 1,000 ML IV SCH (10:13)
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
== END 2018-09-11 12:38 | disposition home or self-care (01) | DRG 866 ==
LOC: FER 10:25 → FM/S 13:39
PROVIDERS: ADMIT Internal Medicine; ATTEND Nurse Practitioner Acute Care
DX: B02.7 Disseminated zoster (principal); N40.0 Benign prostatic hyperplasia without lower urinary tract symptoms; C14.0 Malignant neoplasm of pharynx, unspecified; F32.9 Major depressive disorder, single episode, unspecified; E83.39 Other disorders of phosphorus metabolism; E83.42 Hypomagnesemia
CPT/HCPCS: 36415; 71045-TC-FY; 80053; 81003; 83735; 84100; 85025; 85610; 85730; 87040; 87086; 99281-25; J1644; J7030